=== PATIENT | male | born 1960 | race Caucasian/White ===

== ENCOUNTER → 2020-01-22 | Outpatient (CLI) | payer OTHER ==
[~2020-01-22] MED LIST: IOHEXOL 350 MG/ML 100 ML VIAL. IV ONE
--- NOTE | 2020-01-22 13:07 | RAD ---
Exam: CT abdomen/pelvis with and without intravenous contrast Indication: Hematuria Comparison: None Technique: Helical CT imaging performed of the abdomen and pelvis before and after the intravenous administration of 100 mL Omnipaque 350 intravenous contrast. Sagittal and coronal reformats were obtained. One or more of the following individualized dose reduction techniques were utilized for this examination: 1. Automated exposure control 2. Adjustment of the mA and/or kV according to patient size 3. Use of iterative reconstruction technique. Findings: Lower chest: Normal. Liver: The liver is normal in size. There is a 4 mm hypodensity in the right hepatic lobe, likely a simple cyst but too small to characterize. Gallbladder/Biliary Tree: Normal. Pancreas: Normal. Spleen: No splenomegaly. There are calcified splenic granulomas. Adrenal Glands: Normal. Kidneys/Ureters/Bladder: Kidneys are normal in size and enhance symmetrically. There is no nephrolithiasis or hydronephrosis. Ureters are normal course and caliber. There is no filling defect in the renal collecting systems or ureters. The bladder is normal without evidence of wall thickening. Reproductive Organs: Prostate gland is mildly enlarged. Stomach, small bowel, and colon: The stomach, small bowel, colon, and appendix are normal. There is sigmoid diverticulosis. Vasculature: Abdominal aorta is normal in caliber. Mild calcified aortoiliac atherosclerosis. Lymph Nodes: No lymphadenopathy. Peritoneum and retroperitoneum: No free fluid or free air. Bones: There is thoracolumbar scoliosis with severe degenerative disc disease, greatest at L1-L2 and L4-L5. Severe canal and foraminal narrowing at multiple levels. Severe left facet arthrosis at L4-L5 and L5-S1. Impression: 1. Normal appearance of the kidneys, ureters, and bladder. 2. Severe degenerative disc disease and facet arthrosis with canal and foraminal narrowing at multiple levels. 3. Sigmoid diverticulosis. Electronically signed by: Amelie Ndiaye MD (01/22/2020 1:04 PM) [id number]
== END ==
LOC: CT 08:26
PROVIDERS: ATTEND Specialist
DX: N40.0 Benign prostatic hyperplasia without lower urinary tract symptoms (principal); K57.30 Diverticulosis of large intestine without perforation or abscess without bleeding; R31.9 Hematuria, unspecified; I25.10 Atherosclerotic heart disease of native coronary artery without angina pectoris; M51.35 Other intervertebral disc degeneration, thoracolumbar region; M48.061 Spinal stenosis, lumbar region without neurogenic claudication; M47.817 Spondylosis without myelopathy or radiculopathy, lumbosacral region
CPT/HCPCS: 74178; Q9967